=== PATIENT | female | born 1985 | race American Indian/Alaskan Native ===

== ENCOUNTER 2016-11-07 20:12 | Emergency (ER) | payer MEDICAID ==
[2016-11-07] MEDS ORDERED: TESSALON PERLES PO ONE (22:57)
[2016-11-07] MEDS ORDERED: TORADOL IV ONE (22:57)
[2016-11-07] MEDS ORDERED: ZOFRAN IV ONE (22:57)
[2016-11-07] MEDS ORDERED: NACL 0.9% 1000 ML 1,000 ML IV ONE (22:57)
[2016-11-07] MEDS ORDERED: BENTYL IM ONE (22:57)
--- NOTE | 2016-11-07 23:02 | Emergency Department Report ---
ED General Adult HPI - General Chief complaint: Upper Respiratory Infection Stated complaint: "gimmie somthing to kill what's keeping me sick" Time Seen by Provider: 11/07/16 22:43 Source: patient Mode of arrival: Ambulatory Limitations: No Limitations - History of Present Illness Initial comments: PT c/o cough x 5 days. PT states the coughing has her stomach sore. PT states she is also nauseated. PT states she has not eaten solid food due to nausea. PT states she is able to keep water and Pedialyte down. PT states she is having diarrhea. PT states she is "shitting the bottom of my stomach out." PT states she has had 10 episodes of diarrhea today. PT states that she smokes 2-3 cigars a day and has a hx of bronchitis. Pt reports that her mother was recently sick with the same symptoms and she was exposed to her. MD Complaint: cough/ diarrhea Onset/Timin -: Gradual, days(s) Location: chest, abdomen Radiation: other (entire body hurts ) Severity scale (0 -10): 6 Quality: aching Consistency: constant Improves with: none Worsens with: eating Associated Symptoms: fever/chills, headaches, loss of appetite, malaise, nausea/ vomiting - Related Data Previous Rx's Medication Instructions Recorded Last Taken Type Albuterol Sulfate [Ventolin HFA] 2 puff IH Q4H PRN #1 hfa.aer.ad 11/08/16 Unknown Rx Azithromycin [Zithromax Z-JOSÉ MIGUEL] 250 mg PO QDAY #6 tablet 11/08/16 Unknown Rx Benzonatate [Tessalon Perles] 100 mg PO Q8HR PRN #12 capsule 11/08/16 Unknown Rx Dicyclomine [Bentyl] 20 mg PO QID PRN #12 tablet 11/08/16 Unknown Rx Ondansetron [Zofran Odt] 4 mg PO Q8HR PRN #10 tab.rapdis 11/08/16 Unknown Rx Allergies Allergy/AdvReac Type Severity Reaction Status Date / Time No Known Allergies Allergy Unverified 11/07/16 21:35 ED Review of Systems ROS: Stated complaint: SHORTNESS OF BREATH Other details as noted in HPI Comment: All other systems reviewed and negative Constitutional: fever, malaise, weakness (generalized ) ENT: denies: ear pain, throat pain Respiratory: cough, shortness of breath. denies: wheezing Gastrointestinal: abdominal pain, nausea, diarrhea. denies: vomiting Musculoskeletal: myalgia Neurological: headache ED Past Medical Hx - Past Medical History Previous Medical History?: No Additional medical history: bronchitis - Surgical History Past Surgical History?: No - Social History Smoking Status: Current Every Day Smoker Substance Use Type: Alcohol, Marijuana - Medications Home Medications: Home Medications Medication Instructions Recorded Confirmed Last Taken Type Albuterol Sulfate [Ventolin HFA] 2 puff IH Q4H PRN #1 hfa.aer.ad 11/08/16 Unknown Rx Azithromycin [Zithromax Z-JOSÉ MIGUEL] 250 mg PO QDAY #6 tablet 11/08/16 Unknown Rx Benzonatate [Tessalon Perles] 100 mg PO Q8HR PRN #12 capsule 11/08/16 Unknown Rx Dicyclomine [Bentyl] 20 mg PO QID PRN #12 tablet 11/08/16 Unknown Rx Ondansetron [Zofran Odt] 4 mg PO Q8HR PRN #10 tab.rapdis 11/08/16 Unknown Rx ED Physical Exam - General Limitations: No Limitations General appearance: alert, in no apparent distress - Head Head exam: Present: atraumatic, normocephalic - Eye Eye exam: Present: normal appearance. Absent: conjunctival injection - ENT ENT exam: Present: mucous membranes moist, TM's normal bilaterally, normal external ear exam - Expanded ENT Exam Expanded Mouth exam: Absent: drooling, trismus Throat exam: Positive: other (clear post nasal drainage ). Negative: tonsillar erythema, tonsillomegaly, tonsillar exudate - Neck Neck exam: Present: normal inspection, full ROM - Respiratory Respiratory exam: Present: normal lung sounds bilaterally, other (dry cough during exam ). Absent: respiratory distress, wheezes - Cardiovascular Cardiovascular Exam: Present: tachycardia, normal heart sounds - GI/Abdominal GI/Abdominal exam: Present: soft, hyperactive bowel sounds (x 4 ). Absent: tenderness - Extremities Exam Extremities exam: Present: normal inspection, full ROM - Back Exam Back exam: Present: normal inspection, full ROM - Neurological Exam Neurological exam: Present: alert, oriented X3 - Psychiatric Psychiatric exam: Present: normal affect, normal mood - Skin Skin exam: Present: warm, dry, intact ED Course Vital Signs 11/07/16 11/07/16 11/08/16 21:26 23:50 00:46 Temperature 98.6 F 98 F Pulse Rate 96 H 89 Respiratory 18 18 19 Rate Blood Pressure 130/96 Blood Pressure 126/79 [Left] O2 Sat by Pulse 100 100 Oximetry - Reevaluation(s) Reevaluation #1: 11/07/16 23:09 PT aware of plan of care. No questions at this time. Reevaluation #2: 11/08/16 00:00 PT states she is feeling better. PT aware XR report and lab work pending. PT has no questions at this time. - Pulse Oximetry Interpretation Digit-Finger Initial Pulse Oximetry Readin Actions Taken: none ED Medical Decision Making - Lab Data Result diagrams: 11/07/16 23:21 11/07/16 23:21 - EKG Data -: EKG Interpreted by Me EKG shows normal: sinus rhythm Rate: normal - Radiology Data Radiology results: image reviewed possible early infiltrate in right upper lobe - Differential Diagnosis viral illness, bronchitis, pna, influenza Critical care attestation.: If time is entered above; I have spent that time in minutes in the direct care of this critically ill patient, excluding procedure time. ED Disposition Clinical Impression: Cough, Tobacco abuse, Nausea, Hypokalemia, Community acquired pneumonia Diarrhea Qualifiers: Diarrhea type: unspecified type Qualified Code(s): R19.7 - Diarrhea, unspecified Disposition: DISCHARGED TO HOME OR SELFCARE Is pt being admited?: No Does the pt Need Aspirin: No Condition: Stable Instructions: Acute Nausea and Vomiting (ED), Acute Diarrhea (ED), Community- acquired Pneumonia (ED), Viral Syndrome (ED), Nutrition Tips for Relief of Diarrhea (ED) Prescriptions: Albuterol Sulfate [Ventolin HFA] 2 puff IH Q4H PRN #1 hfa.aer.ad PRN Reason: Shortness Of Breath Azithromycin [Zithromax Z-JOSÉ MIGUEL] 250 mg PO QDAY #6 tablet Benzonatate [Tessalon Perles] 100 mg PO Q8HR PRN #12 capsule PRN Reason: Cough Dicyclomine [Bentyl] 20 mg PO QID PRN #12 tablet PRN Reason: Diarrhea Ondansetron [Zofran Odt] 4 mg PO Q8HR PRN #10 tab.rapdis PRN Reason: Nausea Referrals: [facility] [Outside] - 3-5 Days PRIMARY CARE,MD [Primary Care Provider] - 3-5 Days Forms: Accompanied Note, Work/School Release Form(ED)
[2016-11-07 23:40] LABS: Basophils % (Auto) 0.3 % (0.0-1.8); Eosinophils % (Auto) 0.1 % (0.0-4.3); Hematocrit 47.5 % (30.3-42.9); Hemoglobin 15.9 gm/dl (10.1-14.3); Mean Corpuscular HGB Conc 34 % (30-34); Mean Corpuscular Hemoglobin 31 pg (28-32); Mean Corpuscular Volume 92 fl (79-97); Platelet Count 185 K/mm3 (140-440); Red Blood Count 5.16 M/mm3 (3.65-5.03); Red Cell Distribution Width 12.6 % (13.2-15.2); White Blood Count 7.5 K/mm3 (4.5-11.0)
[2016-11-07 23:59] LABS: Alanine Aminotransferase 60 units/L (7-56); Albumin 4.1 g/dL (3.9-5); Albumin/Globulin Ratio 1.1 %; Alkaline Phosphatase 81 units/L (35-129); Anion Gap 22 mmol/L; BUN/Creatinine Ratio 17.14; Bilirubin,Total 0.6 mg/dL (0.1-1.2); Blood Urea Nitrogen 12 mg/dL (7-17); Calcium 9.1 mg/dL (8.4-10.2); Carbon Dioxide 23 mmol/L (22-30); Chloride 93.6 mmol/L (98-107); Glucose 88 mg/dL (65-100); Lipase 39 units/L (13-60); Potassium 3.5 mmol/L (3.6-5.0); Sodium 135 mmol/L (137-145); Total Protein 7.7 g/dL (6.3-8.2)
[2016-11-08] MEDS ORDERED: K-DUR PO ONE (00:05)
--- NOTE | 2016-11-08 00:20 | XRay Report ---
FINAL REPORT EXAM: XR CHEST ROUTINE 2V HISTORY: cough TECHNIQUE: PA and lateral chest radiographs 3 images PRIORS: None. FINDINGS: There is subtle increased opacity in the inferior aspect of the right upper lobe. No pleural effusion is seen. Heart size within normal limits. No acute osseous abnormality is identified. IMPRESSION: 1. Possible early infiltrate in the right upper lobe.
--- NOTE | 2016-11-08 00:44 | Emergency Department Report ---
Blank Doc - Documentation Documentation: A/P: Community acquired pneumonia 1-patient signed out to me by nurse practitioner Valentín 2-chest x-ray read as possible early infiltrates I will cover patient empirically with azithromycin for community-acquired pneumonia 3-discussed case with Dr. Leija before discharging patient 4- patient had normal vitals fully ambulatory and felt significantly better before discharge O2 sat 100%
[2016-11-08 00:47] VITALS: BP 126/79
== END 2016-11-08 00:49 | disposition home or self-care (01) ==
LOC: ED 20:12
DX: E87.6 Hypokalemia (principal); J18.9 Pneumonia, unspecified organism; F17.200 Nicotine dependence, unspecified, uncomplicated; R19.7 Diarrhea, unspecified; F12.10 Cannabis abuse, uncomplicated
CPT/HCPCS: 36415; 71020; 80053; 82550; 83690; 85025; 87400; 93005; 93010; 96361; 96372; 96374; 96375; 99284; J0500; J1885; J2405; J7030